=== PATIENT | female | born 1950 | race African-American/Black ===

== ENCOUNTER 2021-09-28 07:42 | Emergency (ER) | payer MEDICARE ==
[~2021-09-28] VITALS: Ht 165.1 cm; Wt 82.0 kg
[2021-09-28] MEDS ORDERED: ACETAMINOPHEN 325MG TABLET PO ONE (08:30)
[2021-09-28] MEDS ORDERED: ATENOLOL 25MG TABLET PO STA (08:49)
[2021-09-28] MEDS ORDERED: AMLODIPINE 5MG TABLET PO ONE (09:00)
[2021-09-28] MEDS ORDERED: ATENOLOL 50 MG TABLET PO NR (09:00)
[2021-09-28 10:01] VITALS: BP 192/114
== END 2021-09-28 12:24 | disposition home or self-care (01) ==
LOC: ER 07:42
DX: M54.12 Radiculopathy, cervical region (principal); M25.512 Pain in left shoulder; I10 Essential (primary) hypertension
CPT/HCPCS: 71045; 73030; 93005; 99285